=== PATIENT | male | born 2000 | race Two or more races ===

== ENCOUNTER 2021-03-04 11:40 | Emergency (ER) | payer MEDICAID, OTHER ==
[~2021-03-04] VITALS: Ht 172.7 cm; Wt 99.8 kg
[2021-03-04 14:35] VITALS: BP 137/89
== END 2021-03-04 15:24 | disposition home or self-care (01) ==
LOC: ER 11:40
DX: L03.211 Cellulitis of face (principal)
CPT/HCPCS: 70486